=== PATIENT | male | born 1980 | race Caucasian/White ===

== ENCOUNTER 2020-08-27 10:37 | Emergency (ER) | payer SELFPAY ==
[~2020-08-27] VITALS: Ht 165.1 cm; Wt 65.8 kg
[2020-08-27 10:38] VITALS: BP_SYST 139
[2020-08-27 12:11] VITALS: BP_SYST 139
== END 2020-08-27 12:13 | disposition home or self-care (01) ==
LOC: SED 10:37
DX: S63.004A Unspecified dislocation of right wrist and hand, initial encounter (principal); Y35.813A Legal intervention involving manhandling, suspect injured, initial encounter; Y93.89 Activity, other specified; Y92.89 Other specified places as the place of occurrence of the external cause; Y99.8 Other external cause status
CPT/HCPCS: 71045; 99284

== ENCOUNTER 2020-08-27 19:38 | Emergency (ER) | payer SELFPAY ==
[~2020-08-27] VITALS: Ht 165.1 cm; Wt 65.8 kg
[2020-08-27 19:38] VITALS: BP_SYST 142
[2020-08-27] MEDS ORDERED: ASPIRIN 325 MG TABLET PO ONE (20:00)
[2020-08-27 21:40] VITALS: BP_SYST 142
== END 2020-08-27 21:40 | disposition home or self-care (01) ==
LOC: SED 19:38
DX: L03.113 Cellulitis of right upper limb (principal); R07.9 Chest pain, unspecified
CPT/HCPCS: 93005; 99283